=== PATIENT | female | born 1930 | race Caucasian/White ===

== ENCOUNTER 2017-11-19 07:24 | Day surgery (SDC) | payer OTHER ==
[2017-11-07 12:28] VITALS: BMI 26.8
[2017-11-19 07:52] VITALS: TEMP 97.7
[2017-11-19] MEDS ORDERED: PHENYLEPHRINE 2.5% OPHTH SOLN 15 ML BOTTLE OD SCH (08:00)
[2017-11-19] MEDS ORDERED: TROPICAMIDE 1% OPHTH SOLN 15 ML BOTTLE OD SCH (08:00)
[2017-11-19] MEDS ORDERED: KETOROLAC TROMETHAMINE 0.5% EYE DROP 1 DROP DROPS OD SCH (08:00)
[2017-11-19] MEDS ORDERED: GENTAMICIN SULFATE 0.3% OPHTHALMIC (EYE DROPS) 5ML BOTTLE OD SCH (08:00)
[2017-11-19] MEDS ORDERED: CYCLOPENTOLATE HCL 1% OPHTH SOLN 2 ML BOTTLE OD SCH (08:00)
[2017-11-19] MEDS: TROPICAMIDE 1% OPHTH SOLN 15 ML BOTTLE ONE ×5 (08:20→08:40)
[2017-11-19] MEDS: KETOROLAC TROMETHAMINE 0.5% EYE DROP 1 DROP DROPS ONE ×5 (08:20→08:40)
[2017-11-19] MEDS: GENTAMICIN SULFATE 0.3% OPHTHALMIC (EYE DROPS) 5ML BOTTLE ONE ×5 (08:20→08:40)
[2017-11-19] MEDS: CYCLOPENTOLATE HCL 1% OPHTH SOLN 2 ML BOTTLE ONE ×5 (08:20→08:40)
[2017-11-19] MEDS: PHENYLEPHRINE 2.5% OPHTH SOLN 15 ML BOTTLE ONE ×5 (08:20→08:40)
[2017-11-19] MEDS ORDERED: EPI-SHUGARCAINE (EPINEPHRINE 0.025% & LIDOCAINE-PF 0.75%) 4ML ONE (09:42)
[2017-11-19] MEDS ORDERED: TETRACAINE 0.5% OPHTH SOLN 2 ML BOTTLE ONE (09:43)
[2017-11-19] MEDS ORDERED: POVIDONE-IODINE 5% OPHTHALMIC PREP 30 ML SOLUTION ONE (09:43)
[2017-11-19] MEDS ORDERED: ACETYLCHOLINE 1:100 INTRA-OCUL 20 MG/2 ML KIT ONE (09:43)
[2017-11-19] MEDS ORDERED: MIDAZOLAM HCL 2 MG/2 ML SINGLE DOSE VIAL ONE (09:55)
[2017-11-19] MEDS ORDERED: ONDANSETRON 4 MG/2 ML VIAL ONE (10:19)
[2017-11-19] MEDS ORDERED: DEXAMETHASONE SOD PHOSPHATE 4 MG/1 ML VIAL ONE (10:19)
[2017-11-19] MEDS ORDERED: ACETAMINOPHEN 325 MG TABLET (FP) PO PRN (11:05)
--- NOTE | 2017-11-19 11:53 | OP ---
DATE OF OPERATION: 11/19/2017 PREOPERATIVE DIAGNOSIS: Cataract, right eye. POSTOPERATIVE DIAGNOSIS: Cataract, right eye. PROCEDURE: Cataract extraction via phacoemulsification with insertion of posterior chamber lens implant, right eye. SURGEON: Jose Sheriff MD CONDUIT REAMER OPERATOR: Porsha Kaur MD ANESTHESIA: Topical with sedation. ESTIMATED BLOOD LOSS: Less than 1 mL. COMPLICATIONS: None. SPECIMENS: None. DESCRIPTION OF PROCEDURE: The patient was identified in the holding area. After all risks, benefits, and alternatives were explained to the patient, informed consent was obtained. The right eye was marked with a marking pen. The patient then entered the operating room on an eye stretcher. The patient was instructed to sit up on the eye stretcher, and the right eye was marked. The cardinal axes were marked using a Toric bubble marker after tetracaine eye drops were instilled onto the right eye. The patient was then instructed to lie back down, and the right eye was prepped and draped in the usual sterile fashion. An eyelid speculum was placed beneath the eyelid of the right eye. Then the Toric axis was marked, which was noted and found to be 15 degrees using a degree dial and a marking pen and a Toric marker. Then, a 15-degree blade was used to make a superotemporal incision. Topical preservative-free epinephrine and preservative-free lidocaine was then injected into the anterior chamber. Viscoelastic was then injected into the anterior chamber. A 2.4-mm keratome blade was then used to make an infratemporal incision. A 360-degree continuous curvilinear capsulorrhexis was then created using bent cystotome and Utrata forceps. Hydrodissection was performed using balanced saline solution on a cannula. Phacoemulsification was introduced to disassemble and remove the nucleus in its entirety. Irrigation/aspiration was then used to remove any remaining cortical material from the eye. The capsular bag was reformed using viscoelastic. An Heber Model [id number] with a power of 20.0 diopter serial number [id number] was inspected and found to be defect free and injected into the capsular bag. Irrigation/aspiration was then used to remove any remaining viscoelastic from the eye. Then the Toric lens was rotated so that the Toric axis on the intraocular lens optic was aligned with the 15-degree ariane on the cornea. Then, after confirmation that the lens was perfectly centered, intracameral Miochol and Miostat were then administered, and the pupil came down and was round. All wounds were hydrated with balanced saline solution and noted to be watertight. Topical antibiotic eyedrops and ointment were then administered to the right eye. The eyelid speculum was removed from the right eye. The right eye was shielded. The patient tolerated the procedure well and left the operating room in stable condition to follow up in the eye clinic tomorrow at 9 o'clock. JOSE SHERIFF M.D. [id number]
[2017-11-19 12:05] VITALS: BP 146/78; PULSE 76
== END 2017-11-19 11:55 | disposition home or self-care (01) ==
LOC: FASU 07:24
PROVIDERS: ATTEND Ophthalmology
PROC: 08RJ3JZ Replacement of Right Lens with Synthetic Substitute, Percutaneous Approach (ICD-10-PCS; principal; 2017-11-19 10:32)
DX: H26.9 Unspecified cataract (principal)